=== PATIENT | female | born 1975 ===

== ENCOUNTER 2021-04-18 10:02 | Emergency (ER) | payer BC ==
[~2021-04-18] VITALS: Ht 160 cm; Wt 50.0 kg
[2021-04-18] MEDS ORDERED: NS 1,000 ML IV ONE ×2 (11:30→12:20)
[2021-04-18] MEDS ORDERED: ONDANSETRON 4MG/2ML VIAL IV ONE (12:20)
[2021-04-18] MEDS ORDERED: ONDA4TAB6 PO (12:24)
[2021-04-18 13:50] VITALS: BP 120/74
== END 2021-04-18 14:06 | disposition home or self-care (01) ==
LOC: M ED 10:02
DX: U07.1 COVID-19 (principal); Z88.0 Allergy status to penicillin
CPT/HCPCS: 80047; 96361; 96374; 99284; J2405